=== PATIENT | female | born 1965 ===

== ENCOUNTER 2021-10-27 08:33 | Day surgery (SDC) | payer OTHER ==
[~2021-10-27 08:33] MED LIST: B12 ACTIVE1000 MCG PO; D3 + K2 DOTS 11 EACH PO; LEVO-T50 MCG PO; LIPITOR20 MG PO; VITAMIN C500 M6 PO; ZINC50 M1 PO
[2021-10-27] MEDS ORDERED: IBU600 MG PO (13:22)
== END 2021-10-27 17:54 | disposition home or self-care (01) ==
LOC: CIR.AMB 08:33
PROVIDERS: ATTEND Obstetrics & Gynecology Gynecology
DX: D25.0 Submucous leiomyoma of uterus (principal); Z20.822 Contact with and (suspected) exposure to COVID-19; Z91.013 Allergy to seafood; E78.5 Hyperlipidemia, unspecified; Z86.16 Personal history of COVID-19; J45.909 Unspecified asthma, uncomplicated; E03.9 Hypothyroidism, unspecified